=== PATIENT | female | born 1970 | race African-American/Black ===

== ENCOUNTER → 2019-03-30 | Outpatient (CLI) | payer OTHER | END | disposition home or self-care (01) | LOC: CT 08:28 | PROC: BW211ZZ Computerized Tomography (CT Scan) of Abdomen and Pelvis using Low Osmolar Contrast (ICD-10-PCS; principal; 2019-03-30) | DX: R10.9 Unspecified abdominal pain (principal) | CPT/HCPCS: Q9967 ==